=== PATIENT | male | born 2000 | race Caucasian/White ===

== ENCOUNTER 2021-01-24 20:37 | Emergency (ER) | payer OTHER ==
[2021-01-24 20:52] VITALS: BP 111/76; PULSE 90; TEMP 98.2; BMI 22.9
== END 2021-01-24 21:24 | disposition home or self-care (01) ==
LOC: JERFT 20:37 → JER 20:37 → JERFT 21:24
DX: Z11.52 Encounter for screening for COVID-19 (principal)
CPT/HCPCS: 99283-25; C9803; Q3014-GT; U0003; U0005